=== PATIENT | female | born 1980 | race Caucasian/White ===

== ENCOUNTER 2022-02-15 11:09 | Emergency (ER) | payer OTHER ==
[2022-02-15 13:04] LABS: BASOPHIL 0.4 % (0-2); EOSINOPHIL 1.7 % (0-5); HCT 46.8 % (37.0-47.0); HGB 15.2 g/dl (12.5-16.0); MCH 30.6 pg (25.0-31.0); MCHC 32.5 g/dL (32.0-36.0); MCV 94.2 fL (78.0-100.0); MONOCYTE 6.4 % (0-12); MPV 9.7 fL (6.0-9.5); NEUTROPHIL 64.2 % (41-80); NRBC 0; PLT 334 K/uL (150-400); RBC 4.97 M/uL (4.20-5.40); RDW 13.8 % (11.5-14.0); WBC 7.9 K/uL (4.0-10.5)
[2022-02-15 13:05] LABS: BILIRUBIN NEGATIVE (NEGATIVE); BLOOD 3+ Ery/uL (NEGATIVE); CLARITY CLOUDY (CLEAR); COLOR YELLOW (YELLOW); GLUCOSE (U) NORMAL (NORMAL); LEUKOCYTES TRACE Leu/uL (NEGATIVE); NITRITE NEGATIVE (NEGATIVE); PROTEIN TRACE (LOW) mg/dL (NEGATIVE); UROBILINOGEN 0.2 mg/dL (0.2-1.0)
[2022-02-15 13:28] LABS: URINARY RBC TNTC
[2022-02-15 13:29] LABS: ALBUMIN 3.9 g/dL (3.4-5.0); BILIRUBIN - TOTAL 0.3 mg/dL (0.2-1.0); BUN/CREAT RATIO (CALC) 11.7 RATIO; CREATININE 0.77 mg/dL (0.51-0.95); GLOBULIN (CALCULATION) 3.8 g/dL; POTASSIUM 3.7 mmol/L (3.5-5.1); TOTAL PROTEIN 7.7 g/dL (6.4-8.2)
[2022-02-15 13:29] LABS: BACTERIA TRACE
[2022-02-15] MEDS ORDERED: MEDROL 4MG DOSEP4 MG PO (15:52)
== END 2022-02-15 16:22 | disposition home or self-care (01) ==
LOC: FER 11:09
PROVIDERS: Nurse Practitioner Family
DX: N20.0 Calculus of kidney (principal); Z28.310 Unvaccinated for COVID-19
CPT/HCPCS: 36415; 80053; 81001; 85025; J1885; J2405; J7030

== ENCOUNTER → 2022-04-18 | Day surgery (SDC) | payer OTHER ==
[~2022-04-18] VITALS: Ht 160 cm; Wt 84.4 kg
[~2022-04-18] MED LIST: BUSPIRONE HCL7.5 MG PO; DESVENLAFAXINE50 M3 PO; MEDROL 4MG DOSEP4 MG PO; SYNTHROID88 MC1 PO
[2022-04-18 06:13] LABS: HCG (URINE) SCREEN NEGATIVE (NEGATIVE)
== END | disposition home or self-care (01) ==
LOC: FAS 05:51
PROVIDERS: Anesthesiology
DX: G56.03 Carpal tunnel syndrome, bilateral upper limbs (principal)
CPT/HCPCS: 84703; 93005; J1885; J2250; J2405; J2704; J3010; J7120